=== PATIENT | male | born 1980 | race Caucasian/White ===

== ENCOUNTER 2018-09-27 13:58 | Emergency (ER) | payer OTHER, BC, SELFPAY ==
[2018-09-27 13:59] VITALS: BP 171/95; PULSE 71; RESP 18; TEMP 36.9; O2SAT 95; BMI 39.9
[2018-09-27] MEDS: Diphth,Pertuss(Acell),Tet Vac 0.5 ML Vial IM (14:19)
--- NOTE | 2018-09-27 14:30 | RAD_ITS ---
STUDY: X-RAY - RIGHT HAND, ATTENTION THIRD FINGER REASON FOR EXAM: Male, 38 years old. Amputation of the third digit on the right hand due to equipment accident TECHNIQUE: 3 view(s) of the finger were obtained. COMPARISON: None. FINDINGS: Normal metacarpal head. Normal metacarpophalangeal joint. Normal proximal phalanx. Normal middle phalanx. Partial amputation of the distal third digit including the tuft of the third distal phalanx. Soft tissue swelling. Normal proximal interphalangeal joint. Normal distal interphalangeal joint. RAD/Finger(s) Min 2 Views IMPRESSION: Partial amputation of the distal third digit including the tuft of the third distal phalanx. Electronically Signed: Kermit Henderson MD at 16:00 EST , Service support ,
--- NOTE | 2018-09-27 15:02 | ED.DCSUM_ITS ---
- ER Visit Summary Date of Service: 09/27/18 Chief Complaint: Crush injury right long finger History of Present Illness: The patient is a 38 M who is left-hand dominant. He is placing a magnet onto a table which apparently was metal. The magnet crushed the tip of his right long finger. Immunizations unknown. No antibiotic allergies. He is a smoker. He denies any other symptoms or complaints please read written note for complete detail Physical Examination: The distal portion was brought in on ice. It was appropriately stored/package. Vital signs are marked for an elevated blood pressure 171/95. Heart is regular without murmur, gallop or rub. S1 and S2 are normal. Lungs are clear to auscultation with good movement of air bilaterally. Patient has amputation of distal portion of the right long finger. The nail has been avulsed. The extensor commonest tendon is intact. The flexor digitorum superficialis and flexor digitorum profundus are intact. There is no laxity of the collateral ligament of his DIP or PIP joint. The distal phalanx is not exposed and did not require additional treatment other than cleansing the wound. Test Results: X-ray of the finger reveals avulsed tissue with an open tuft fracture. Emergency Department Course and Treatment: Tetanus immunization, 1 g of Ancef IM, wound care Treatment Plan: Prescription for antibiotics follow-up with orthopedics. Revision Disposition: Discharged to home with outpatient follow-up Impression: Amputation right long finger with open tuft fracture This note was generated with [employer] dictation software. It may contain incorrect words, spelling, and punctuation that were not noted in review of the chart prior to signing ED Disposition - Plan for ED Patient: Disposition: Home or Assisted Living Chief Complaint: Wound Instructions: ED Fx Finger Open Prescriptions: Cephalexin [Keflex] 500 mg PO Q8 #14 cap Referrals: Care Physician,No Primary [Primary Care Provider] - Arminda Lemos DO [STAFF PHYSICIAN] - Additional Instructions: Call Dr. Juarez's office tomorrow morning for appointment in the next 1-2 days.
[2018-09-27 15:52] VITALS: BP 126/84; PULSE 59; RESP 16; O2SAT 98
== END 2018-09-27 15:53 | disposition home or self-care (01) ==
PROVIDERS: Emergency Provider Emergency Medicine
DX: S68.622A Partial traumatic transphalangeal amputation of right middle finger, initial encounter (principal); W23.0XXA Caught, crushed, jammed, or pinched between moving objects, initial encounter; Y93.9 Activity, unspecified; Y92.9 Unspecified place or not applicable; Y99.0 Civilian activity done for income or pay; Z23 Encounter for immunization; F17.200 Nicotine dependence, unspecified, uncomplicated; Z79.899 Other long term (current) drug therapy
CPT/HCPCS: 73140; 90471; 90715; 96372; 99284; A4216

== ENCOUNTER 2018-10-02 08:18 | Emergency (ER) | payer OTHER, BC, SELFPAY ==
[2018-09-29 10:41] VITALS: BMI 39.9
[2018-10-02 08:19] VITALS: BP 200/111; PULSE 75; RESP 18; TEMP 35.6; O2SAT 100; BMI 36.5
--- NOTE | 2018-10-02 08:39 | ED.DCSUM_ITS ---
- ER Visit Summary Date of Service: 10/02/18 Chief Complaint: Right long finger pain status post traumatic amputation History of Present Illness: The patient is a 38 M who presents with pain in his right long finger. He had a traumatically amputated at work last week. He has been seen at an urgent care for a dressing change and then he followed up with orthopedics. Dr. Flores referred him to Dr. Crawford for definitive repair. Patient comes in today because he is having pain. He has been trying NSAIDs at home without any relief. He has not had any fever. Denies any significant drainage coming from his dressing. Physical Examination: Vital signs are reviewed. Right hand exam reveals a traumatic irritation of the right long finger. The nail has been removed prior to this visit. There is no bleeding. There is no erythema of the wound. It is diffusely tender along the tip of the finger. Test Results: None performed Emergency Department Course and Treatment: The patient's wound will be redressed with antibiotic dressing. At this point I will give him a few Percocet to control his pain at home. I did attempt to review an [facility] report but one was unavailable. He will follow-up with orthopedics and plastic surgery Treatment Plan: [] Disposition: Discharge Impression: Traumatic amputation, right long finger, subsequent visit This note was generated with [employer] dictation software. It may contain incorrect words, spelling, and punctuation that were not noted in review of the chart prior to signing ED Disposition - Plan for ED Patient: Chief Complaint: Upper Extremity Injury Referrals: Care Physician,No Primary [Primary Care Provider] -
--- NOTE | 2018-10-02 08:39 | ED.DEP ---
ED Disposition - Plan for ED Patient: Disposition: Home or Assisted Living Chief Complaint: Upper Extremity Injury Instructions: ED Wound Check Post Op No Infec Prescriptions: Oxycodone HCl/Acetaminophen [Percocet 5/325] 1 tab PO Q6H PRN PRN 3 Days #12 tab PRN Reason: Pain Referrals: Care Physician,No Primary [Primary Care Provider] -
[2018-10-02 08:52] VITALS: RESP 16
--- OUTSIDE RECORDS SUMMARY | 2018-11-17 21:08 | XMS RPT_ITS ---
:1980 Author Organization OHIP Care Team Providers Name Role Phone Aminta Arminda Attending Unavailable Primay Care Physicia, No Referring Unavailable Primay Care Physicia, No Primary Care Unavailable Adelfo Weber Attending Unavailable Primay Care Physicia, No Primary Care Unavailable Begum, Pete Attending Unavailable Kar Fuentes Attending Unavailable Primay Care Physicia, No Referring Unavailable PROBLEMS PROBLEMS DATE TYPE CONDITION / CODE ATTENDING STATUS SOURCE Unknown S68.122A - Partial Adelfo Weber [facility] middle finger, initial encounter / S68.122A(ICD-10) PROCEDURES PROCEDURES No Procedure Records FoundRESULTS RESULTS DISCHARGE INSTRUCTION Observed: 10/02/2018 Status: F Source: DAVE 8:41 AM [facility] REPOSITORY [facility] Medical Records Department [address] [place], [place] [address] [address] Discharge Instruction 10/02/18 0839 MR#: [id number] Acct: [id number] Name: AISSATOU VALLADARES Rep #: [id number] : 1980 38 From: Adelfo Weber MD PCP: Josh Physician, No Primary Status: REG ER ED Disposition - Plan for ED Patient: Disposition: Home or Assisted Living Chief Complaint: Upper Extremity Injury Instructions: ED Wound Check Post Op No Infec Prescriptions: Oxycodone HCl/Acetaminophen [Percocet 5/325] 1 tab PO Q6H PRN PRN 3 Days #12 tab PRN Reason: Pain Referrals: Care Physician,No Primary [Primary Care Provider] - What to do if you have Problems For any increased pain, shortness of breath, bleeding, nausea or vomiting, chest pain, or any unexpected problems, contact your Primary Care Provider. Call [facility] ([phone]) or report to the closest Emergency Room. Call 911 if necessary. 10/02/18 0841 <Electronically signed by Adelfo Weber MD> Date Adelfo Weber MD Cosigner Signature (If Indicated): Date CC: No Primary Care Physician EMERGENCY DEPARTMENT Observed: 10/02/2018 Status: F Source: HEBRON SUMMARY 8:39 AM [facility] REPOSITORY [facility] Medical Records Department [address] [place] [address] Emergency Department Summary 10/02/18 0837 MR#: [id number] Acct: [id number] Name: AISSATOU VALLADARES Rep #: [id number] : 1980 38 From: Adelfo Weber MD PCP: Josh Adrian, No Primary Status: REG ER - ER Visit Summary Date of Service: 10/02/18 Chief Complaint: Right long finger pain status post traumatic amputation History of Present Illness: The patient is a 38 M who presents with pain in his right long finger. He had a traumatically amputated at work last week. He has been seen at an urgent care for a dressing change and then he followed up with orthopedics. Dr. Flores referred him to Dr. Crawford for definitive repair. Patient comes in today because he is having pain. He has been trying NSAIDs at home without any relief. He has not had any fever. Denies any significant drainage coming from his dressing. Physical Examination: Vital signs are reviewed. Right hand exam reveals a traumatic irritation of the right long finger. The nail has been removed prior to this visit. There is no bleeding. There is no erythema of the wound. It is diffusely tender along the tip of the finger. Test Results: None performed Emergency Department Course and Treatment: The patient's wound will be redressed with antibiotic dressing. At this point I will give him a few Percocet to control his pain at home. I did attempt to review an OARRS report but one was unavailable. He will follow-up with orthopedics and plastic surgery Treatment Plan: [] Disposition: Discharge Impression: Traumatic amputation, right long finger, subsequent visit This note was generated with FanIQ dictation software. It may contain incorrect words, spelling, and punctuation that were not noted in review of the chart prior to signing ED Disposition - Plan for ED Patient: Chief Complaint: Upper Extremity Injury Referrals: Care Physician,No Primary [Primary Care Provider] - What to do if you have Problems For any increased pain, shortness of breath, bleeding, nausea or vomiting, chest pain, or any unexpected problems, contact your Primary Care Provider. Call [facility] ([phone]) or report to the closest Emergency Room. Call 911 if necessary. 10/02/18 0839 <Electronically signed by Adelfo Weber MD> Date Adelfo Weber MD Cosigner Signature (If Indicated): Date CC: No Primary Care Physician ORTHOPEDIC VISIT Observed: 09/29/2018 Status: F Source: DAVE REPORT 1:28 PM [facility] REPOSITORY [facility] [address] [place] [address] OFFICE VISIT Date of Service: 09/29/18 MR#: [id number] Acct: [id number] Name: AISSATOU VALLADARES Rep #: [id number] : 1980 Provider: Arminda Lemos DO Age/Sex: 38/M [facility] [facility] Status: Signed Intake Vital Signs09/29/18 Body Mass Index (BMI) 39.9 Intake Visit Reasons: RIGHT HAND Chief Complaint: RMF DP partial amputation Allergies No Known Allergies Allergy (Verified 09/28/18 10:20) Medications Venlafaxine HCl [Venlafaxine HCl ER] 225 mg PO DAILY 03/20/17 [History Confirmed 09/28/18] Cephalexin [Keflex] 500 mg PO Q8 #14 cap 09/27/18 [Rx Confirmed 09/28/18] PFSH Social History Smoking Status: Light Smoker (<10/day) HPI RIGHT HAND: Details: AISSATOU VALLADARES is a 38 year old M here today for right middle finger amputation. followup from a [facility] injury which happened on September 27, 2018. Patient states a magnet came down on his right middle finger. He states he is taking Tylenol for pain. [facility] for a [facility]. Ortho Exam Right Wrist/Hand Skin/Wound: Yes healing, Yes wound care, No nail intact Contralateral Normal: Yes A1 wild trigger: No Right Wrist: Yes ROM-Extension 0-60, ROM-Supination 0-90, ROM-Flexion 0-80 and ROM-Pronation 0-80 Motor: EPL: 5, FDP-2: 5, 1st Dorsal Interosseous: 5, APB: 5 WRIST: minimal rom in the middle finger, nail traumatically removed Assessment AND Plan 1. Partial traumatic metacarpophalangeal amputation of right middle finger, initial encounter S68.122A Plan Patient has a distal amputation need for revision amputation trimming down the bone and possible flap at this point he could also do wet-to-dry dressings I guess and see if granulation tissue occurs but the fact and I am going on maternity leave would like to refer patient either Dr. Crawford or Dr. Janice Leblanc. Personally reviewed the patient's medical history, medications, surgeries and recent exams if available. X-rays were reviewed. There is evidence of partial distal amputation Edcuated on the anatomy of the finger and innervation of the nerves. Explained that the nail is off and the distal finger tip is amputated. He does need a revision amputation with Dr Crawford to see if the skin can be brought together, we will request a referral to wound care, Dr Crawford and instructed to begin the antibiotics today. 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 Follow up or sooner if pain, swelling, numbness or associated symptoms, or concerns develop. All questions answered. Patient in agreement of plan. Coding Level of Care Code Off vis,new,level 3 Diagnoses Partial traumatic metacarpophalangeal amputation of right middle finger, initial encounter S68.122A Encounter type: initial encounter 09/29/18 1328 <Electronically signed by Arminda Lemos DO> Date Arminda Lemos DO Cosigner Signature: Date (if applicable) CC: URGENT CARE VISIT Observed: 09/28/2018 Status: F Source: HEBRON REPORT 12:14 PM [facility] REPOSIT[facility] [address] [place] [address] OFFICE VISIT Date of Service: 09/28/18 MR#: [id number] Acct: [id number] Name: AISSATOU VALLADARES Rep #: [id number] : 1980 Provider: Kar QUAN Age/Sex: 38/M Location: [facility] Status: Signed Intake Vital Signs09/28/18 Body Mass Index (BMI) 39.9 09/28/18 Height 5 ft 9 in Intake Visit Reasons: RIGHT MIDDLE FINGER SMASHED RE EVAL/FRITO LAY Chief 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 Patient states while at work while performing his duties 8 magnet crushed his right middle finger distal phalanx against a metal product therefore reported [facility]'s emergency room where radiographs revealed a tuft fracture avulsion with right middle finger distal aspects of distal phalanx amputation. Site was stabilized with dressing and released the same day, make arrangements for patient to see [facility] on 09/29/2018. Patient is here for evaluation today at the employer's request for wound reassessment/dressing change. Patient notes continued persistent moderate aching discomfort exacerbated to severe discomfort when wound is open to air. He notes no loss of sensation or function at the DIPJ and distally. His TD is up-to-date. He is right-hand dominant. He notes no other associated symptoms and no other alleviating or aggravating factors. ROS Const Constitutional: No other (ROS negative x10 other than as noted above) Exam Const General: cooperative, healthy appearing, no acute distress Orientation: alert, awake, oriented x3 Chest Chest palpation AND inspection: normal inspection of the chest Resp Effort AND Inspection: normal respiratory effort, able to speak in complete sentences Cardio Rate: regular rate Pulses: radial pulses present Skin General: no rashes or lesions noted (See extremity below) Neuro General: alert, awake, oriented x3, gait normal Cognition: normal cognition Speech: speech normal Gait: normal gait Motor: muscle tone normal throughout Sensory Exam: no sensory deficits noted Extrem General: full ROM, normal capillary refill, no joint enlargement, normal exam except as noted (RMF DP distal 1/2 amputation w/o active bleeding; redressed/ coban applied) Psych Appearance: grossly normal Mental Status: mental status grossly normal Mood: congruent mood Affect: normal affect Speech and Movement: speech and movement normal Attitude: cooperative Thought Process: normal Thought Content: normal Judgment: judgment good Assessment AND Plan Problems 1. Partial traumatic metacarpophalangeal amputation of right middle finger S68.122A Plan See revised work restrictions on today's [employer]. C9 submitted today for orthopedic referral, already prescheduled for 09/29/18. Follow up with [facility] on an as needed basis. Pt states acknowledging understanding all the above. Coding Level of Care Code Off vis,new,level 3 Diagnoses Partial traumatic metacarpophalangeal amputation of right middle finger S68.122A 09/28/18 1214 <Electronically signed by Kar QUAN> Date Kar QUAN Cosigner Signature: Date (if applicable) CC: EMERGENCY DEPARTMENT Observed: 09/27/2018 Status: F Source: HEBRON SUMMARY 3:02 PM [facility] REPOSITORY [facility] Medical Records Department [address] [place] [address] Emergency Department Summary 09/27/18 1458 MR#: [id number] Acct: [id number] Name: AISSATOU VALLADARES Juan Diego Rep #: [id number] : 1980 38 From: Pete Begum MD PCP: Care Physician, No Primary Status: REG ER - ER Visit Summary Date of Service: 09/27/18 Chief Complaint: Crush injury right long finger History of Present Illness: The patient is a 38 M who is left- hand dominant. He is placing a magnet onto a table which apparently was metal. The magnet crushed the tip of his right long finger. Immunizations unknown. No antibiotic allergies. He is a smoker. He denies any other symptoms or complaints please read written note for complete detail Physical Examination: The distal portion was brought in on ice. It was appropriately stored/package. Vital signs are marked for an elevated blood pressure 171/95. Heart is regular without murmur, gallop or rub. S1 and S2 are normal. Lungs are clear to auscultation with good movement of air bilaterally. Patient has amputation of distal portion of the right long finger. The nail has been avulsed. The extensor commonest tendon is intact. The flexor digitorum superficialis and flexor digitorum profundus are intact. There is no laxity of the collateral ligament of his DIP or PIP joint. The distal phalanx is not exposed and did not require additional treatment other than cleansing the wound. Test Results: X-ray of the finger reveals avulsed tissue with an open tuft fracture. Emergency Department Course and Treatment: Tetanus immunization, 1 g of Ancef IM, wound care Treatment Plan: Prescription for antibiotics follow-up with orthopedics. Revision Disposition: Discharged to home with outpatient follow-up Impression: Amputation right long finger with open tuft fracture This note was generated with FanIQ dictation software. It may contain incorrect words, spelling, and punctuation that were not noted in review of the chart prior to signing ED Disposition - Plan for ED Patient: Disposition: Home or Assisted Living Chief Complaint: Wound Instructions: ED Fx Finger Open Prescriptions: Cephalexin [Keflex] 500 mg PO Q8 #14 cap Referrals: Care Physician,No Primary [Primary Care Provider] - Arminda Lemos DO [STAFF PHYSICIAN] - Additional Instructions: Call Dr. Juarez's office tomorrow morning for appointment in the next 1-2 days. What to do if you have Problems For any increased pain, shortness of breath, bleeding, nausea or vomiting, chest pain, or any unexpected problems, contact your Primary Care Provider. Call [facility] ([phone]) or report to the closest Emergency Room. Call 911 if necessary. 09/27/18 1502 <Electronically signed by Pete Begum MD> Date Pete Begum MD Cosigner Signature (If Indicated): Date CC: No Primary Care Physician; Arminda Lemos DO FINGER(S) MIN 2 VIEWS Observed: 09/27/2018 Status: F Source: DAVE 2:16 PM [facility] REPOSITORY [facility] Imaging Services [address] [place] [address] Finger(s) Min 2 Views MR#: [id number] Acct: [id number] Name: AISSATOU VALLADARES Rep #: [id number] : 1980 M 38 From: Kermit Henderson MD PCP: Care Physician, No Primary Status: DEP ER Study: Finger(s) Min 2 Views Date of Exam: 09/27/18 Exam# [id number] Ordering Dr: Pete Begum MD STUDY: X-RAY - RIGHT HAND, ATTENTION THIRD FINGER REASON FOR EXAM: Male, 38 years old. Amputation of the third digit on the right hand due to equipment accident TECHNIQUE: 3 view(s) of the finger were obtained. COMPARISON: None. FINDINGS: Normal metacarpal head. Normal metacarpophalangeal joint. Normal proximal phalanx. Normal middle phalanx. Partial amputation of the distal third digit including the tuft of the third distal phalanx. Soft tissue swelling. Normal proximal interphalangeal joint. Normal distal interphalangeal joint. RAD/Finger(s) Min 2 Views IMPRESSION: Partial amputation of the distal third digit including the tuft of the third distal phalanx. Electronically Signed: Kermit Henderson MD at 16:00 EST , Service support , CC: No Primary Care Physician; Pete Begum MD Diabetic Educator: Signed ALLERGIES ALLERGIES DATE TYPE / CODE NAME / CODE REACTION SEVERITY SOURCE 10/02/2018 Drug No Known Unknown [place] [facility] Allergy/4160 Allergies/F00 Hospital 45410(SNOMED 6240455(RXNOR Repository CT) M) ENCOUNTERS ENCOUNTERS ADMIT/DISCHARGE ACCOUNT ADMITTING ENCOUNTER LOCATION SOURCE NUMBER CLASS 10/02/2018/ [id number] Emergency Dave [place] 8 1 [facility] ing:ED Repository 09/29/2018/ [id number] Ambulatory BMSBuilding:B [place] 8 6 MS.SMO [facility] Repository 09/28/2018/ [id number] Ambulatory BMSBuilding:B Dave 8 6 [place] Repository 09/27/2018/ [id number] Emergency [place] 8 9 [facility] ing:ED Repository PAYERS PAYERS ENCOUNTER GUARANTOR PAYER SUBSCRIBER SOURCE 10/02/2018 AISSATOU W Primary AISSATOU W [place] [id number] Insurance:MARGUERITE GUY: [facility] [id number]: Repository [id number]: [phone] [id number] [phone] (HP) Date:0859-41-43CH [address] [place] [address] 45286KM: 10/02/2018 Secondary AISSATOU W [place] Insurance:ANTHEMPolic TAMMYB: Count includes the [facility] Number: [id number] Hospital [id number] Repository Date:[id number] [address]NS: 10/02/2018 Tertiary NOT GIVENUNK Dave Insurance:SELF PAY [facility] Number: Effective Repository Date:2018-10-02 09/29/2018 AISSATOU W Primary AISSATOU W [place] [id number] Insurance:MARGUERITE MUNOZB: [facility] Number: [id number], [place] [id number] Repository [address]Cwj: [phone] julia [phone] (HP) Date:[id number] CK CMSP O [address] [place] [address] 15492AG: 09/29/2018 Secondary AISSATOU W Dave Insurance:ANTHEMPolic SCHULTZDOB: Community y Number: [id number] Medical [id number] Repository Date:3292-10-51ZD [address] [place] [address] 50870PG: 09/29/2018 Tertiary NOT GIVENUNK [place] Insurance:SELF PAY [facility] Number: Effective Repository Date:2018-09-28 09/28/2018 AISSATOU W Primary AISSATOU W Dave [id number] Insurance:MARGUERITE SCHULTANGDOB: [facility] Number: [id number], [place] [id number] Repository [address]Lvp: [phone] juliar [phone] (HP) Date:[id number] CK CMSP O [address] [place] [address] 27833MD: 09/28/2018 Secondary AISSATOU W Dave Insurance:ANTHEMPolic SCHULTZDOB: Community y Number: [id number] Medical [id number] Repository Date:9431-04-73QG [address] [place] [address] 06813GT: 09/28/2018 Tertiary NOT GIVENUNK [place] Insurance:SELF PAY [facility] Number: Effective Repository Date:2018-09-28 09/27/2018 AISSATOU W Primary AISSATOU W [place] [id number] Insurance:MARGUERITE VALLADARESDOB: [facility] [id number], [place] Number: Repository [id number]: [phone] [id number] [phone] (HP) Date:[id number] [address] [place] [address] 81331AR: 09/27/2018 Secondary AISSATOU W [place] Insurance:ANTHEMPolic SCHULTZDOB: Community y Number: [id number] Medical [id number] Repository Date:[id number] [address] [place] [address] 89868IX: 09/27/2018 Tertiary NOT GIVENUNK [place] Insurance:SELF PAY [facility] Number: Effective Repository Date:2018-09-27
== END 2018-10-02 08:53 | disposition home or self-care (01) ==
PROVIDERS: Emergency Provider Emergency Medicine
DX: S68.622A Partial traumatic transphalangeal amputation of right middle finger, initial encounter (principal); X58.XXXA Exposure to other specified factors, initial encounter; Y93.9 Activity, unspecified; Y92.9 Unspecified place or not applicable; Y99.0 Civilian activity done for income or pay; F32.9 Major depressive disorder, single episode, unspecified; Z72.0 Tobacco use; Z79.899 Other long term (current) drug therapy
CPT/HCPCS: 99282